=== PATIENT | female | born 1975 | race Caucasian/White ===

== ENCOUNTER 2019-02-01 14:23 | Emergency (ER) | payer BC ==
--- NOTE | 2019-02-01 15:27 | EDM.PDOC ---
ED HPI GENERAL MEDICAL PROBLEM - General Chief Complaint: Skin Complaint Stated Complaint: SWOLLEN NECK Time Seen by Provider: 02/01/19 15:20 Source of Information: Reports: Patient, Family History Limitations: Reports: No Limitations - History of Present Illness INITIAL COMMENTS - FREE TEXT/NARRATIVE: 43-year-old healthy female had a small pimple underneath her left jaw that was present several days ago and started growing. It's now reddened, swollen, inflamed and tender. There is a small scab overlying the subcutaneous infection but no drainage. Some erythema is extending down the anterior left chest. No airway compromise. She has a low grade fever but no chills. 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 Dermatologic History: Reports: Other (See Below) Other Dermatologic History: cyst removal on shoulder - Past Surgical History Female Surgical History: Reports: D&C Social & Family History - Tobacco Use Smoking Status *Q: Never Smoker - Recreational Drug Use Recreational Drug Use: No ED ROS GENERAL - Review of Systems Review Of Systems: See Below Constitutional: Denies: Fever, Chills Respiratory: Denies: Shortness of Breath Cardiovascular: Denies: Chest Pain GI/Abdominal: Denies: Abdominal Pain, Nausea : Denies: Frequency Neurological: Denies: Headache Psychiatric: Reports: No Symptoms ED EXAM, SKIN/RASH Exam: See Below Exam Limited By: No Limitations General Appearance: Alert, No Apparent Distress Neck: Other (Patient has a 2.5 x 2.5 somewhat raised erythematous area underneath the left corner of the mandible which is freely movable but tender and slightly fluctuant. There is some superficial surrounding erythema extending down the anterior chest and up towards the left ear.) Course - Vital Signs Last Recorded V/S: Last Vital Signs Temp 100.1 F 02/01/19 15:13 Pulse 116 H 02/01/19 15:13 Resp 16 02/01/19 15:13 BP 129/79 02/01/19 15:13 Pulse Ox 98 02/01/19 15:13 - Orders/Labs/Meds Meds: Medications Discontinued Medications Generic Name Dose Route Start Last Admin Trade Name Dung PRN Reason Stop Dose Admin Clindamycin Phosphate 900 mg/ 106 mls @ 200 mls/hr 02/01/19 16:00 02/01/19 16 :26 Sodium Chloride IV 02/01/19 16:31 200 mls/hr ONETIME ONE Administration Lidocaine HCl 5 ml 02/01/19 15:26 02/01/19 16:26 Xylocaine-Mpf 1% INJECT 02/01/19 15:27 5 ml ONETIME ONE Administration Sodium Chloride 10 ml 02/01/19 15:31 Saline Flush FLUSH ASDIRECTED PRN Keep Vein Open - Re-Assessments/Exams Free Text/Narrative Re-Assessment/Exam: 02/01/19 16:19 Patient has developed a subcutaneous cyst which has become infected. The area was covered with Betadine, infiltrated with 1% lidocaine and a #11 scalpel blade was used to incise the abscess. A small amount of purulent material was expelled and cultured. 1 inch of one quarter iodoform gauze was placed into the area, topical bacitracin applied and an IV started. Patient was given 900 mg of IV clindamycin and placed on oral clindamycin. 02/01/19 17:31 Patient continued be stable, ate a bowl of soup without difficulty. No breathing difficulties. Overlying dressing was applied to the I&D area, topical bacitracin, and the patient was given oral clindamycin to take 300 mg 4 times a day. She was also given 6 complementary hydrocodone for extra pain control. She is to use moist warm compresses to the area twice daily and recheck when home in 3 days. She can also be rechecked sooner if she feels she is worsening despite treatment. 02/03/19 11:52 Patient was called and informed that her Gram stain showed gram-positive cocci which should be responsive to clindamycin, sensitivities are not available yet. She still has a "hard lump" under her neck but it's much smaller, there is no drainage, and the surrounding redness is gone and there is much less pain. Departure - Departure Time of Disposition: 18:02 Disposition: Home, Self-Care 01 Clinical Impression: Neck abscess - Discharge Information Instructions: Incision and Drainage, Care After Referrals: PCP,None [Primary Care Provider] - Forms: ED Department Discharge Care Plan Goals: Take 2 pills of antibiotic 4 times a day for at least the next 5 days. Warm compresses to the area 2-3 times daily along with pain medication will be helpful. Return or recheck if you feel you are worsening despite treatment, especially if breathing difficulties develop or you are unable to swallow.
[2019-02-01] MEDS ORDERED: Sodium Chloride 0.9% 10 ML Syringe FLUSH PRN (15:31)
[2019-02-01] MEDS ORDERED: Clindamycin Phosphate 900 MG in Sodium Chloride 0.9% 100 ML IV ONE (16:00)
== END 2019-02-01 18:01 | disposition home or self-care (01) ==
LOC: JP.ED 14:23
DX: L02.11 Cutaneous abscess of neck (principal)
CPT/HCPCS: 10060; 87070; 87077; 87186; 87205; 96365; 99283; J2001; J3490; J7030